=== PATIENT | male | born 1970 | race Caucasian/White ===

== ENCOUNTER 2024-12-07 15:43 | Emergency (ER) | payer OTHER, SELFPAY ==
--- NOTE | ~2024-12-07 | XR_ITS ---
HISTORY: injury to 3/4 toes and MP joints COMPARISON: None TECHNIQUE: 3 views of the left foot were performed. FINDINGS: No acute fracture or dislocation is appreciated. No significant degenerative disease is noted. The base of the fifth metatarsal is intact. No calcaneal spur is noted. No significant soft tissue swelling is present. IMPRESSION: No acute fracture or dislocation. Reviewed, dictated and finalized at location A.
--- OUTSIDE RECORDS SUMMARY | 2024-12-07 15:46 | XMS_ITS | Clinical Summary ---
Author Organization [facility] Address [address] [facility] [place] [address] Care Team Providers Care Obstetrician Name Role Phone Basil Patel MD Primary Care Provider [phone] Source Comments [facility],non-owned Affiliates and Associated Physician Practices is amultiple site organization consisting of ambulatory clinics and hospital sitesin [place], [place], [place] and [place]. This disclosure is being madepursuant to the Care Everywhere program and may not contain all information available regarding this patient. Last updated 18.[facility] Allergies No known active allergies Medications * Be aware that medications may not be up to date on this document. Alwaysverify current medications with the patient. 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 Gender Identity Not on file Sexual Orientation Not on file Last Filed Vital Signs Vital Sign Reading Time Taken Comments Blood Pressure - - Pulse - - Temperature - - Respiratory Rate - - Oxygen Saturation - - Inhaled Oxygen Concentration - - Weight 81.6 kg (180 lb) 01/26/2018 1:48 PM CDT Height 182.9 cm (6') 01/26/2018 1:48 PM CDT Body Mass Index 24.41 01/26/2018 1:48 PM CDT Plan of Treatment Health Maintenance Due Date Last Done Comments COLOGUARD (AGES 45-75) - COL ON CA SCREENING 1969 COLON MONITORING 1969 COLONOSCOPY - COLON CA SCREENING 1969 CT COLONOGRAPHY - COLON CA SCREENING 1969 Colorectal Cancer Screening 1969 FIT - COLON CA SCREENING 1969 FLEX SIG - COLON CA SCREENING 1969 LIPID TESTING 1969 HIV SCREENING 1984 HEPATITIS C SCREENING 04/12/1987 DTAP/TDAP/TD VACCINES (1 - Tdap) 1988 HEPATITIS B VACCINE (1 of 3 - 19+ 3-dose series) 1988 PNEUMOCOCCAL VACCINE 50+ (1 of 1 - PCV) 2019 ZOSTER VACCINE (1 of 2) 2019 COVID-19 VACCINE (2023-2 5 season) 2024 DEPRESSION SCREENING 07/13/2024 INFLUENZA VACCINE (Season Ended) 2025 HIB VACCINE Aged Out No longer eligi ble based on patient's age to complete this topic HPV VACCINE Aged Out No longer eligi ble based on patient's age to complete this topic MENINGOCOCCAL (Group B) VACC INE SHARED DECISION-MAKING Aged Out No longer eligibl e based on patient's age to complete this topic MENINGOCOCCAL GROUPS A/C/Y/W VACCINE Aged Out No longer eligible b ased on patient's age to complete this topic [place] [address] [employer] Care Teams Obstetrician Relationship Specialty Start Date End Date Basil Patel MD [address] [place] [phone] PCP - General Family Medicine 10/20/17
--- OUTSIDE RECORDS SUMMARY | 2024-12-07 15:46 | XMS_ITS | Patient Health Record ---
Author Organization [facility] Address [address] [place] [address] Care Team Providers Care Wet Inspector Optical Glass Name Role Phone Deborah Olivo Primary Care Provider Allergies No Known Allergies Reason For Referral No Information Medications Medication SIG (Take, Route, Frequency, Duration) Notes Start Date End Date Status Albuterol Sulfate HFA 108 (90 Base) MCG/ACT 1 puff as needed Inhalation every 4 hrs for 30 days Active Nicorette 2 MG 1 piece chew for 30 minutes as needed Mouth/Throat every 8 hrs for 30 days 09/28/2024 Active Immunizations Vaccine Route Administration Date Status Comme nts Moderna COVID-19 Unknown 04/08/2021 Administered Moderna COVID-19 Unknown 05/13/2021 Administered Social History Tobacco Use: Social History Observation Description Date Details (start date - stop date) Current Smoker NA - NA Sexual History Question Answer Notes Had sex in the past 12 months (vaginal, oral, or anal)? Yes with Women only Use protection? No Prevention strategies discussed: Condoms Have you ever had a Sexually transmitted disease ? No Tobacco use other than smoking: Question Answer Notes Are you an other tobacco user? No Tobacco Control (Standard) Question Answer Notes Tobacco use: Current smoker How often do you smoke cigarettes? Every day How many cigarettes a day do you smoke? 6-10 How soon after you wake up do you smoke your fir st cigarette? Within 5 minutes Are you interested in quitting? Not ready to guero t AUDIT-C (Standard) Question Answer Notes Did you have a drink containing alcohol in the p ast year? 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 confirmed Problem 593108285 Elevated blood pressure reading in office without diagnosis of hypertension (R03.0) Active confirmed Vital Signs Heart Rate 69 /min 09/27/2024 Temperature 97.5 degrees Fahrenheit 09/27/2024 Respiratory Rate 18 /min 09/27/2024 Oximetry 95 % 09/27/2024 Blood pressure diastolic 89 mm Hg 09/27/2024 Height-cm 182.88 cm 09/27/2024 Weight-kg 88.45 kg 09/27/2024 Height 72 in 09/27/2024 Blood pressure systolic 146 mm Hg 09/27/2024 Weight 195 lbs 09/27/2024 BMI 26.44 kg/m2 09/27/2024 Encounters Encounter Location Date Provider Diagnosis [facility] [address] [place] [address] 09/27/2024 Deborah Olivo BMI 26.0-26.9,adult Z68.26 ; Tobacco abuse counseling Z71.6 ; Exercise counseling Z71.82 ; Dietary counseling Z71.3 ; Tobacco abuse Z72.0 ; Elevated blood pressure reading in office without diagnosis of hypertension R03.0 ; Cigarette smoker F17.210 and Chronic obstructive pulmonary disease, unspecified COPD type J44.9 [facility] [address] [place] [address] 09/28/2024 Deborah Olivo Assessments Encounter Date Diagnosis (ICD Code) Assessment Notes Treatment Notes Treatment Clinical Notes Section Notes 09/27/2024 Tobacco abuse counseling (ICD-10 - Z71.6) 1. Discussed smoke free home and car. 2. Encouraged patient to pick a quit date, smoke last cigarette, and then throw all other cigarettes, tani trays, etc away. 3. Clean the house and vehicle very well to get rid of smoke smell. 4. Keep a list of reasons why you are quitting to remind yourself during difficult cravings. 5. Try to stay busy so you keep your mind off of smoking. Clean house, do laundry, go for a walk instead of smoking or eating. 6. Try sucking on hard candies or chewing on a straw to keep hands and mouth occuppied. 7. Discussed risks and benefits of smoking cessation medications. 8. Patient given handouts on tips to quit smoking, how to deal with the stress of quitting, and how smoking affects your body. 9. Call or return to the clinic if you have any questions or concerns. 09/27/2024 BMI 26.0-26.9,adult (ICD-10 - Z68.26) 09/27/2024 Exercise counseling (ICD-10 - Z71.82) 09/27/2024 Dietary counseling (ICD-10 - Z71.3) 09/27/2024 Tobacco abuse (ICD-10 - Z72.0) 09/27/2024 Elevated blood pressure reading in office without diagnosis of hypertension (ICD-10 - R03.0) 09/27/2024 Cigarette smoker (ICD-10 - F17.210) 09/27/2024 Chronic obstructive pulmonary disease, unspecified COPD type (ICD-10 - J44.9) Plan Of Treatment No Information Insurance Providers Payer Name Payer Address Payer Phone Subscriber Number Group Number Insured Name Patient Relationship to Insured Coverage Start Date Coverage End Date [facility] [place] [facility] [address] [place] [id number] Noah Davidson Self - patient is the insured Medical (General) History Medical History History ICD Code COPD Surgical History Surgery Date(Month/Year) Liver Biopsy Hospitalization History Reason Date(Month/Year) Liver biopsy
[2024-12-07 15:49] VITALS: BP 141/101; PULSE 79; RESP 16; TEMP 37; O2SAT 96
--- NOTE | 2024-12-07 15:56 | ED.LOWEXIN ---
HPI - Extremity Injury (Lower) General Chief Complaint: Extremity Injury, Lower Stated Complaint: left foot pain Time Seen by Provider: 12/07/24 15:56 Source: patient Mode of arrival: ambulatory Limitations: no limitations History of Present Illness HPI Narrative: 54-year-old male, ex-smoker with history of pulmonary nodules presents to the ED after he dropped a heavy object over his left foot. The patient had steel toe boots. He presents to the ED with -- contusion of base of the 2/3/4 toes and adjoining foot. Patient complains of pain which is worse on movement of the toes no other injuries noted. complaint: foot injury Onset (ago): hour(s) ( 2-1/2 hours ago.) Injury: Left: foot Type of Injury: blunt Severity: mild Relieving factors: immobilization Exacerbating factors: movement Context: direct blow Other symptoms: none Related Data Allergies Allergy/AdvReac Type Severity Reaction Status Date / Time No Known Allergies Allergy Verified 12/07/24 16:36 Review of Systems Review of Systems: All systems reviewed & are unremarkable except as noted in HPI and below PMFSH Past Medical History Medical History (Updated 12/07/24 @ 16:37 by Kishore Vázquez MD) Pulmonary nodules Social History Social History (Updated 12/07/24 @ 16:05 by Kishore Vázquez MD) Social History: ex-smoker Exam Narrative: blood pressure 141/101. The pulse of 79. Oxygen saturation of 96% on room air. Const: General: no acute distress Orientation/consciousness: patient oriented x3 Limitations: no limitations HENMT: Head: normal to inspection Ears: external ears normal Face/Nose/Sinus: Normal external nose present Face and sinus: normal facial exam Mouth: Yes Normal oral and palatal mucosa present Teeth and gingiva: abnormal tooth and associated gingiva Throat: posterior oropharynx normal Eyes: Conjunctivae: conjunctivae normal Pupils: Equal, round and reactive pupils present EOM: EOMs intact bilaterally Direct Ophthalmoscopy: no photophobia Neck: Neck: normal visual inspection, no lymphadenopathy and no meningeal signs Chest: Chest palpation & inspection: normal inspection of the chest Resp: Effort & Inspection: normal respiratory effort Auscultation: clear to auscultation bilaterally Cardio: Rate: regular rate Rhythm: regular rhythm GI: GI Palp: Yes Soft to palpation Auscultation: normal bowel sounds Other: No tenderness/ rigidity / rebound. : General: Yes no CVA tenderness Back/Spine/Pelvis: Back: no CVA tenderness Skin: General skin exam: normal color Other: Contusion over left 2/3/4 toes and adjoining foot Neuro: General: patient oriented x3, moves all extremities, no meningeal signs, no focal motor deficits and CN's II-XI intact bilaterally Cranial nerves: Yes Nystagmus not present Speech: normal speech Extrem: Other: left foot has bruising and tenderness over the proximal 2/3/4 toes and over the MP joints. Decreased range of motion of this 2/3/4 MP joints Psych: Mental Status: mental status grossly normal Affect: normal affect Attitude: cooperative Course Course Emergency Course: blunt trauma left foot/ foot contusion-- x-ray of the foot did not show any fracture/dislocation Vital Signs Vital signs: Vital Signs Temperature 37.0 C 12/07/24 15:49 Pulse Rate 79 12/07/24 15:49 Respiratory Rate 16 12/07/24 15:49 Blood Pressure 141/101 H 12/07/24 15:49 Pulse Oximetry 96 12/07/24 15:49 Oxygen Delivery Room Air 12/07/24 15:49 Temperature 37.0 C 12/07/24 15:49 Pulse Rate 79 12/07/24 15:49 Respiratory Rate 16 12/07/24 15:49 Blood Pressure 141/101 H 12/07/24 15:49 Pulse Oximetry 96 12/07/24 15:49 Oxygen Delivery Room Air 12/07/24 15:49 MDM - Extremity Injury (Lower) MDM Narrative Medical decision making narrative: left foot contusion status post blunt trauma Differential Diagnosis Differential diagnosis: Likely other ( foot fracture) Medical Records Attestation: I reviewed the patient's medical records. Lab Data Attestation: I reviewed the patient's lab results. Discharge Plan Discharge Clinical Impression: Contusion of foot Qualifiers: Encounter type: initial encounter Laterality: left Qualified Code(s): S90.32XA - Contusion of left foot, initial encounter Patient Disposition: Home Condition: Stable Instructions: Antibiotic Form, Foot Contusion (ED) Patient Language: Kyrgyz Prescriptions: New diclofenac sodium 50 mg tablet,delayed release (DR/EC) 50 mg PO TID PRN (Reason: pain) Qty: 20 0RF Follow-up/Referrals: Jorge,MD Basil [Primary Care Provider] - Time of Disposition: 16:38
--- OUTSIDE RECORDS SUMMARY | 2024-12-07 16:37 | XMS_ITS | Clinical Summary ---
Author Organization [facility] Address [address] [place] [address] Care Team Providers Care Behavioral Health Care Manager Name Role Phone Basil Patel MD Primary Care Provider [phone] Source Comments [facility],non-owned Affiliates and Associated Physician Practices is amultiple site organization consisting of ambulatory clinics and hospital sitesin [place], [place], [place] and [place]. This disclosure is being madepursuant to the Care Everywhere program and may not contain all information available regarding this patient. 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
[2024-12-07] MEDS: KETOROLAC 30 MG/ML VIAL (*BKC) IM (16:38)
== END 2024-12-07 16:50 | disposition home or self-care (01) ==
PROVIDERS: Emergency Provider Internal Medicine Critical Care Medicine; PCP Family Medicine
DX: S90.32XA Contusion of left foot, initial encounter (principal); W22.8XXA Striking against or struck by other objects, initial encounter
CPT/HCPCS: 73630; 96372; 99283; J1885